=== PATIENT | female | born 1975 | race Asian ===

== ENCOUNTER 2021-10-12 13:51 | Outpatient (CLI) | payer BC | END 2021-10-12 13:52 | disposition home or self-care (01) | LOC: CSHMAMMO 13:51 | PROVIDERS: ATTEND Family Medicine | DX: Z12.31 Encounter for screening mammogram for malignant neoplasm of breast (principal) | CPT/HCPCS: 77063; 77067 ==

== ENCOUNTER 2023-02-05 10:51 | Outpatient (CLI) | payer BC | END 2023-02-05 10:52 | disposition home or self-care (01) | LOC: CSHMAMMO 10:51 | PROVIDERS: ATTEND Student in an Organized Health Care Education/Training Program | DX: Z12.31 Encounter for screening mammogram for malignant neoplasm of breast (principal) | CPT/HCPCS: 77063; 77067 ==

== ENCOUNTER 2024-03-01 08:33 | Outpatient (CLI) | payer BC | END 2024-03-01 08:34 | disposition home or self-care (01) | LOC: CSHMAMMO 08:33 | PROVIDERS: ATTEND Student in an Organized Health Care Education/Training Program | DX: Z12.31 Encounter for screening mammogram for malignant neoplasm of breast (principal) | CPT/HCPCS: 77063; 77067 ==

== ENCOUNTER 2024-11-10 15:09 | Outpatient (CLI) | payer BC | END 2024-11-10 15:10 | disposition home or self-care (01) | LOC: CSHULT 15:09 | PROVIDERS: ATTEND Student in an Organized Health Care Education/Training Program | DX: N92.6 Irregular menstruation, unspecified (principal); R10.31 Right lower quadrant pain; D25.9 Leiomyoma of uterus, unspecified; N85.2 Hypertrophy of uterus; N85.8 Other specified noninflammatory disorders of uterus | CPT/HCPCS: 76856 ==